=== PATIENT | female | born 1980 | race Caucasian/White ===

== ENCOUNTER 2021-11-23 01:48 | Emergency (ER) | payer MEDICAID, SELFPAY ==
--- NOTE | 2021-11-23 01:49 | ECG_ITS ---
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 Measurements Intervals [place] Rate: 100 P: 62 MO: 120 QRS: 66 QRSD: 83 T: 74 QT: 357 QTc: 460 Interpretive Statements SINUS TACHYCARDIA LOW QRS VOLTAGE IN PRECORDIAL LEADS [QRS DEFLECTION < 1.0 mV IN CHEST LEADS] ABNORMAL RHYTHM ECG Diffuse nonspecific ST-T changes No previous ECG available for comparison Electronically Signed On 11-23-2021 20:41:43 CDT by Alexx Obregon M.D. [email or web address].[employer] (EPS)/store/NU/[id number] kvng
[2021-11-23 01:54] VITALS: BP 110/64; PULSE 96; RESP 22; TEMP 36.6; O2SAT 99; BMI 23.5
[2021-11-23 02:11] VITALS: BP 105/78; PULSE 89; RESP 25; O2SAT 100
--- NOTE | 2021-11-23 02:24 | XRR_ITS ---
PROCEDURE INFORMATION: Exam: XR Abdomen Exam date and time: 11/23/2021 2:28 AM Age: 41 years old Clinical indication: Other: Diarrhea TECHNIQUE: Imaging protocol: Radiologic exam of the abdomen. Views: Frontal supine view of the abdomen. 1 View. COMPARISON: No relevant prior studies available. FINDINGS: Gastrointestinal tract: There is a nonspecific but nonobstructive bowel gas pattern. Bones/joints: Unremarkable. XR/XR KUB portable [id number] IMPRESSION: There is a nonspecific but nonobstructive bowel gas pattern.
--- NOTE | 2021-11-23 02:24 | XRR_ITS ---
PROCEDURE INFORMATION: Exam: XR Chest Exam date and time: 11/23/2021 2:28 AM Age: 41 years old Clinical indication: Shortness of breath; Chest pressure; Patient HX: C/O chest pain with SOB. ; Additional info: Cp TECHNIQUE: Imaging protocol: Radiologic exam of the chest. Views: 1 view. COMPARISON: No relevant prior studies available. FINDINGS: Tubes, catheters and devices: Amplatzer device is in place. Lungs: Unremarkable. No consolidation. Pleural spaces: Unremarkable. No pleural effusion. No pneumothorax. Heart/Mediastinum: Unremarkable. No cardiomegaly. Bones/joints: Unremarkable. XR/XR chest 1V portable [id number] IMPRESSION: No acute disease.
[2021-11-23 02:29] LABS: Basophils % 0.3 %; Eosinophils % 0.2 %; Hematocrit 43.9 % (37.0-47.0); Hemoglobin 14.6 g/dL (11.5-15.3); Lymphocytes # 1.2 10^3/uL (0.8-4.8); Lymphocytes % 19.6 %; Mean Corpuscular HGB Conc 33.3 g/dL (30.0-36.0); Mean Corpuscular Hemoglobin 29.4 pg (28.0-34.0); Mean Corpuscular Volume 88.3 fl (81-99); Mean Platelet Volume 9.8 fL (7.4-10.4); Monocytes # 0.1 10^3/uL (0.2-0.9); Monocytes % 2.1 %; Neutrophils # 4.83 10^3/uL (1.8-7.7); Neutrophils % 77.6 %; Nucleated Red Blood Cells % 0 %; Platelet Count 259 10^3/cmm (130-400); Red Blood Count 4.97 10^6/uL (4.1-5.3); Red Cell Distribution Width 12.4 % (12.1-15.1); White Blood Count 6.2 10^3/uL (4.0-10.0)
[2021-11-23] MEDS: ondansetron 2 mg/ML SDV 2 mL 4 MG IVP (02:36)
[2021-11-23] MEDS: sodium chloride 0.9% 1,000 ML 999 ML IV (02:36)
[2021-11-23 02:48] LABS: Alanine Aminotransferase 45 U/L (0-33); Albumin Level 4.1 g/dL (3.5-5.2); Alkaline Phosphatase 48 U/L (35-105); Anion Gap 20.5 (5-19); Aspartate Amino Transferase 44 U/L (0-32); Blood Urea Nitrogen 10 mg/dL (6-20); C Reactive Protein 7.1 mg/L (0.0-4.9); Calcium 8.4 mg/dL (8.5-10.5); Carbon Dioxide 17 mmol/L (22-29); Chloride 98 mmol/L (98-107); Globulin 2.5 g/dL (1.3-4.6); Glomerular Filtration Rate 79.4 mL/min (90-130); Glucose 158 mg/dL (65-115); Lipase 19 U/L (13-60); Osmolality Calculated 276 mOsm/kg (285-295); Potassium 3.5 mmol/L (3.5-5.1); Sodium 132 mmol/L (136-145); Total Bilirubin 0.4 mg/dL (0.15-1.2); Total Protein 6.6 g/dL (6.6-8.7)
[2021-11-23 02:49] LABS: Troponin(5th) Baseline 6 ng/L (0-10)
--- NOTE | 2021-11-23 02:58 | W.ED.DIZZY ---
HPI - Dizziness General: Chief Complaint: Dizziness Stated Complaint: Chest Pain Time Seen by Provider: 11/23/21 02:13 History of Present Illness: HPI Narrative: 41-year-old female presents with generalized malaise, dizziness, diarrhea, abdominal pain. Patient reports that symptoms been going on throughout the day. That she was concerned because she has a history of a heart attack and has had to have stents placed. patient complains of some left arm discomfort but no real chest pain. Associated symptoms: Reports chills, malaise, nausea and vomiting; Denies chest pain, headache(s) or palpitations Review of Systems Const: Reports: chills, body aches, fatigue and malaise Eyes: Denies: change in vision or blurry vision ENMT: Reports: throat pain; Denies: mouth pain Card: Reports: lightheadedness; Denies: chest pain or palpitations Resp: Denies: dyspnea or productive cough GI: Reports: abdominal pain, nausea, vomiting and diarrhea : Denies: flank pain or dysuria Musc: Denies: neck pain or back pain Skin/Breast: Denies: rash or pruritus Neuro: Reports: dizziness; Denies: headache(s) Physical Exam Const: COMMON NORMALS: no acute distress and patient oriented x3 HENMT: COMMON NORMALS: hearing grossly normal bilaterally and moist oral mucous membranes Eye: COMMON NORMALS: Equal, round and reactive pupils present and EOMs intact bilaterally PUPIL: Yes Equal, round and reactive pupils present Resp: COMMON NORMALS: normal respiratory effort, No use of accessory muscles and clear to auscultation bilaterally AUSCULTATION: clear to auscultation bilaterally Cardio: COMMON NORMALS: regular rate and regular rhythm RATE: regular rate RHYTHM: regular rhythm Extremity: COMMON NORMALS: normal to inspection, full ROM and capillary refill normal Neuro: COMMON NORMALS: patient oriented x3 Psych: COMMON NORMALS: mental status grossly normal, Normal thought process present and speech normal SPEECH: Yes normal speech THOUGHT PROCESS: Normal thought process present Skin: COMMON NORMALS: no rashes or lesions noted, no wounds and turgor normal GENERAL SKIN EXAM: no rashes or lesions noted and turgor normal Course Vital Signs: Vital signs: Vital Signs Temperature 97.8 F 11/23/21 01:54 Pulse Rate 74 11/23/21 04:00 Respiratory Rate 22 H 11/23/21 04:00 Blood Pressure 105/57 11/23/21 04:00 Pulse Oximetry 98 11/23/21 04:00 Oxygen Delivery Me thod 11/23/21 02:11 MDM - Dizziness Medical Decision Making Patient's symptoms have improved with treatment. Patient's symptoms are much more consistent with a viral syndrome noncardiac. She has 2 negative troponins 2 negative EKGs. I will provide her prescription for Zofran. I did recommend she calls her farm equipment engine mechanic to ensure they do not want to see on outpatient basis. Patient stable and discharged home Lab Data : 11/23/21 02:00 11/23/21 02:00 Radiology Impressions Chest X-Ray 11/23/21:24 IMPRESSION: No acute disease. KUB X-Ray 11/23/21:24 IMPRESSION: There is a nonspecific but nonobstructive bowel gas pattern. Laboratory Results WBC 6.2 10^3/uL (4.0-10.0) 11/23/21 02:00 RBC 4.97 10^6/uL (4.1-5.3) 11/23/21 02:00 Hgb 14.6 g/dL (11.5-15.3) 11/23/21 02:00 Hct 43.9 % (37.0-47.0) 11/23/21 02:00 MCV 88.3 fl (81-99) 11/23/21 02:00 MCH 29.4 pg (28.0-34.0) 11/23/21 02:00 MCHC 33.3 g/dL (30.0-36.0) 11/23/21 02:00 RDW 12.4 % (12.1-15.1) 11/23/21 02:00 Plt Count 259 10^3/cmm (130-400) 11/23/21 02:00 MPV 9.8 fL (7.4-10.4) 11/23/21 02:00 Neut % (Auto) 77.6 % 11/23/21 02:00 Lymph % (Auto) 19.6 % 11/23/21 02:00 [place] % (Auto) 2.1 % 11/23/21 02:00 Eos % (Auto) 0.2 % 11/23/21 02:00 Baso % (Auto) 0.3 % 11/23/21 02:00 Neut # (Auto) 4.83 10^3/uL (1.8-7.7) 11/23/21 02:00 Lymph # (Auto) 1.2 10^3/uL (0.8-4.8) 11/23/21 02:00 [place] # (Auto) 0.1 10^3/uL (0.2-0.9) L 11/23/21 02:00 Eos # (Auto) 0.0 10^3/uL (0.0-0.8) 11/23/21 02:00 Baso # (Auto) 0.0 10^3/uL (0.0-0.1) 11/23/21 02:00 Nucleated RBC % (auto) 0 % 11/23/21 02:00 Nucleated RBCs # 0.0 /100WBC 11/23/21 02:00 Sodium 132 mmol/L (136-145) L 11/23/21 02:00 Potassium 3.5 mmol/L (3.5-5.1) 11/23/21 02:00 Chloride 98 mmol/L (98-107) 11/23/21 02:00 Carbon Dioxide 17 mmol/L (22-29) L 11/23/21 02:00 Anion Gap 20.5 (5-19) H 11/23/21 02:00 BUN 10 mg/dL (6-20) 11/23/21 02:00 Creatinine 0.8 mg/dL (0.5-0.9) 11/23/21 02:00 GFR Calculation 79.4 mL/min (90-130) L 11/23/21 02:00 Glucose 158 mg/dL (65-115) H 11/23/21 02:00 Calculated Osmolality 276 mOsm/kg (285-295) L 11/23/21 02:00 Calcium 8.4 mg/dL (8.5-10.5) L 11/23/21 02:00 Total Bilirubin 0.4 mg/dL (0.15-1.2) 11/23/21 02:00 AST 44 U/L (0-32) H 11/23/21 02:00 ALT 45 U/L (0-33) H 11/23/21 02:00 Alkaline Phosphatase 48 U/L (35-105) 11/23/21 02:00 Troponin T Baseline 6 ng/L (0-10) 11/23/21 02:00 Troponin T 120 Minute 6.00 ng/L (0-10) 11/23/21 03:52 C-Reactive Protein 7.1 mg/L (0.0-4.9) H 11/23/21 02:00 Total Protein 6.6 g/dL (6.6-8.7) 11/23/21 02:00 Albumin 4.1 g/dL (3.5-5.2) 11/23/21 02:00 Globulin 2.5 g/dL (1.3-4.6) 11/23/21 02:00 Lipase 19 U/L (13-60) 11/23/21 02:00 SARS-CoV-2 Ag (Rapid) Negative (Negative) 11/23/21 02:34 EKG Data EKG 1: I personally reviewed and interpreted this EKG as follows: EKG interpretation date: 11/23/21 EKG interpretation time: 01:53 Interpretation: Heart rate 103, sinus tach, IL 132, QRS 82, no acute ST elevation or depression. Negative for any acute coronary syndrome EKG 2: I personally reviewed and interpreted this EKG as follows: EKG interpretation date: 11/23/21 EKG interpretation time: 03:52 Interpretation: Heart rate 73, sinus rhythm, occasional PVC. IL 164, QRS 84, negative for any acute ST elevation or T wave changes. Similar to previous EKG Discharge Plan Discharge Patient Disposition: Home Clinical Impression: Viral syndrome Condition: Stable Prescriptions: New ondansetron 4 mg tablet,disintegrating 4 mg PO Q6H PRN (Reason: nausea and vomiting) Qty: 20 0RF Discharge Orders: Discharge ED (Routine); Ordered 11/23/21 Ordered By: Adebayo Woodson Discharge Diet: Advance as tolerated Discharge Activity: Increase activity as tolerated Patient Instructions: Opioid Safety, Pain Management, Viral Syndrome - Adult Activity Restrictions/Additional Instructions: Drink plenty of fluids Please call your farm equipment engine mechanic in the morning to make them aware of your visit to ensure they do not want to see on outpatient basis for further evaluation Coding Level of Care Code ED Jewel Hole Driller for Chg Fwd Exam Comprehensive
[2021-11-23 03:00] VITALS: BP 112/58; PULSE 82; RESP 20; O2SAT 100
[2021-11-23 03:13] LABS: SARS Covid-2 Antigen Negative (Negative)
--- NOTE | 2021-11-23 03:49 | ECG_ITS ---
[facility] Test Date: 2021-11-23 Pat Name: Misa Schumacher Department: Room: Gender: Female Clarifier: : 1980 Requested By: Adebayo Woodson Order Number: [id number] Kg MD: Alexx Obregon M.D. Measurements Intervals [place] Rate: 73 P: 68 MN: 164 QRS: 69 QRSD: 84 T: 25 QT: 380 QTc: 421 Interpretive Statements SINUS RHYTHM WITH OCCASIONAL VENTRICULAR PREMATURE COMPLEXES LOW QRS VOLTAGE IN PRECORDIAL LEADS [QRS DEFLECTION < 1.0 mV IN CHEST LEADS] No previous ECG available for comparison Nonspecific T wave changes Electronically Signed On 11-23-2021 20:48:33 CDT by Alexx Obregon M.D. [email or web address].[facility] Networkslackey memorial hospitalEliassen Groupchildren[facility].[address]/store/OM/[id number]
[2021-11-23 04:00] VITALS: BP 105/57; PULSE 74; RESP 22; O2SAT 98
[2021-11-23 05:03] VITALS: BP 106/70; PULSE 77; RESP 14; O2SAT 98
[2021-11-23 06:25] LABS: Troponin 5 2HR Delta 0 ABS# (0-10)
== END 2021-11-23 05:06 | disposition home or self-care (01) ==
PROVIDERS: Emergency Provider Student in an Organized Health Care Education/Training Program
DX: B34.9 Viral infection, unspecified (principal); Z20.822 Contact with and (suspected) exposure to COVID-19
CPT/HCPCS: 71045; 74018; 80053; 83690; 84484; 85025; 86140; 87426; 93005; J2405; J7030

== ENCOUNTER 2021-12-28 01:00 | Outpatient (CLI) | payer MEDICAID, SELFPAY | END 2021-12-28 23:00 | disposition home or self-care (01) | LOC: RAD 01-08 23:06 | PROVIDERS: PCP Family Medicine; Visit Provider Internal Medicine Cardiovascular Disease | DX: Z13.6 Encounter for screening for cardiovascular disorders (principal); R79.89 Other specified abnormal findings of blood chemistry | CPT/HCPCS: 80053; 80061; 85025; 86705; 86706; 86709; 86803; 87340 ==

== ENCOUNTER → 2022-02-15 09:42 | Outpatient (BNVA) | payer MEDICAID, SELFPAY | PROVIDERS: PCP Family Medicine; Visit Provider Family Medicine | DX: Z30.42 Encounter for surveillance of injectable contraceptive (principal); Z12.4 Encounter for screening for malignant neoplasm of cervix | CPT/HCPCS: 88175 ==

== ENCOUNTER 2022-02-26 13:39 | Outpatient (CLI) | payer MEDICAID, SELFPAY ==
--- NOTE | 2022-02-26 13:45 | USCV_ITS ---
Misa Schumacher Age: 41 Gender: F : 1980 Exam Date: 02/26/2022 13:56 Ordering Phys: Anna Patel MD ([email or web address]) Technologist: Cecille Dowell [place] [facility] [place]: Eval LV function, history PFO repair BP: 121 / 73 HR: 63 Rhythm: Sinus Technical Quality: Good MEASUREMENTS (Male / Female) Normal Values 2D ECHO LV Diastolic Diameter PLAX 3.3 cm 4.2 - 5.9 / 3.9 - 5.3 cm LV Systolic Diameter PLAX 2.6 cm IVS Diastolic Thickness 0.8 cm 0.6 - 1.0 / 0.6 - 0.9 cm IVS Systolic Thickness 1.1 cm LVPW Diastolic Thickness 1.3 cm 0.6 - 1.0 / 0.6 - 0.9 cm LVPW Systolic Thickness 1.4 cm LVOT Diameter 2.1 cm LV Ejection Fraction 2D Teich 45.8 % LV Ejection Fraction MOD 2C 66.2 % LV Ejection Fraction 2C AL 65.0 % LA Diameter 2.1 cm LA Width 2.6 cm LA Height 5.2 cm RA Width 3.5 cm RA Height 4.0 cm Aorta at Sinotubular Diameter 3.1 cm IVC Diameter 1.8 cm M-MODE MV E Point Septal Separation 0.9 cm DOPPLER AV Peak Velocity 89.0 cm/s LVOT Peak Velocity 74.0 cm/s AV Area Cont Eq vti 2.9 cm squared AV Area Cont Eq pk 2.8 cm squared MV Peak Velocity 75.0 cm/s MV Area PHT 4.1 cm squared Mitral E to A Ratio 1.8 MV E' Velocity 80.0 cm/s TR Peak Velocity 61.7 cm/s TR Peak Gradient 1.5 mmHg Right Atrial Pressure 3.0 mmHg Pulmonary Artery Systolic Pressu 4.5 mmHg PV Peak Velocity 86.0 cm/s RV Acceleration Time 0.1 s RV Ejection Time 0.3 s RV AcT/ET 0.3 FINDINGS Left Ventricle Normal left ventricular size, systolic function and wall thickness, with no regional wall motion abnormalities. Left ventricular ejection fraction is estimated at 55-60 %. Abnormal septal motion. Right Ventricle Normal right ventricular size and systolic function. RVSP could not be calculated due to incomplete tricuspid regurgitation velocity profile. Right Atrium Normal right atrial size. S/p PFO repair. No evidence of ASD/PFO. Left Atrium Normal left atrial size. Mitral Valve Structurally normal mitral valve. No mitral valve stenosis. Trace mitral valve regurgitation. Aortic Valve Aortic valve not well visualized. No aortic valve stenosis. No aortic valve regurgitation. Tricuspid Valve Structurally normal tricuspid valve. No tricuspid valve stenosis. Trace tricuspid valve regurgitation. Pulmonic Valve Structurally normal pulmonic valve. No pulmonary valve stenosis. No pulmonary valve regurgitation. Pericardium No pericardial effusion. Aorta Normal-sized aortic root. IVC Normal IVC dimension with >50% respiratory change of the inferior vena cava. CONCLUSIONS 1. Normal left ventricular size, systolic function and wall thickness, with no regional wall motion abnormalities. Left ventricular ejection fraction is estimated at 55-60 %. Abnormal septal motion. 2. Normal right ventricular size and systolic function. 3.Trace mitral and tricuspid valve regurgitation. 4. S/p PFO repair. No evidence of ASD/PFO. 5. No prior similar studies to compare. Anna Patel MD (Electronically Signed) Final Date: 27 February 2022 13:02 S
== END 2022-02-26 13:40 | disposition home or self-care (01) ==
LOC: RAD 13:41
PROVIDERS: PCP Family Medicine; Visit Provider Internal Medicine Cardiovascular Disease
DX: R06.02 Shortness of breath (principal); I25.10 Atherosclerotic heart disease of native coronary artery without angina pectoris; I08.2 Rheumatic disorders of both aortic and tricuspid valves
CPT/HCPCS: 93306

== ENCOUNTER 2022-04-05 06:04 | Outpatient (CLI) | payer MEDICAID, SELFPAY ==
--- NOTE | 2022-04-05 06:29 | NMCV_ITS ---
NM yuli perf SPECT r/s* [id number] Misa Schumacher Age: 41 Gender: F : 1980 Exam Date: 04/05/2022 07:47 Ordering Phys: Anna Patel MD ([email or web address]) Technologist: BRENDA Enamorado Exam Location: [facility] Indications: CHEST PAIN STRESS TEST Please see separate stress test report in [facility] for full findings IMAGE PROTOCOL Rest/Stress 1 Exercise Day Radiopharmaceutical Dose (mCi) Administration Site Administered by Rest: Tc-99m 10.9 IV BRENDA Hopson Sestamibi Stress:Tc-99m 32.2 IV BRENDA Hopson Sestamibi Rest: 05-Apr-2022 60 Discovery 630 Stress: 05-Apr-2022 30 Discovery 630 Radiopharmaceutical was injected at 91 % maximum heart rate. Images obtained in supine and prone position. SPECT RESULTS Technical Quality: Excellent Raw Data Analysis: Normal Image Corrections: No attenuation or motion correction applied Summed Stress Score: 11 Summed Rest Score: 11 Summed Difference Score: 0 PERFUSION FINDINGS Medium sized perfusion abnormality of moderate severity of basal to mid inferolateral, mid inferior, apical inferior and apical lateral high with mild reversibility in mid inferolateral and apical lateral high. FUNCTIONAL RESULTS (calculated via Gated SPECT) Stress Image LV EF (%): 50 Stress EDV (mL):111 TID: 0.86 Stress ESV (mL):55 FUNCTIONAL FINDINGS: The left ventricle is normal in size. Transient Ischemia Dilatation of 0.86. The left ventricular ejection fraction is mildly reduced with a value of 50%. There is mildly decreased wall thickening. IMPRESSIONS 1. Medium sized perfusion abnormality of basal to mid inferolateral, mid inferior, apical inferior and apical lateral high with mild reversibility in mid inferolateral and apical lateral high. 2. This may represent old myocardial infarction in right coronary artery/ circumflex artery territory with mild geronimo-infarct ischemia. 3. The left ventricular ejection fraction is mildly reduced with a value of 50%. 4. There is mildly decreased wall thickening. 5. EKG portion of the study will be reported separately. Anna Patel MD (Electronically Signed) Final Date: 06 April 2022 18:15 S
--- NOTE | 2022-04-05 06:29 | ECG_ITS ---
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 Interpretive Statements NAME OF STUDY: EXERCISE SESTAMIBI STRESS TEST INDICATION: Chest Pain Baseline blood pressure of 105/82 mm Hg, heart rate 86 beats per minute and oxygen saturation of 100%. EKG showed sinus rhythm, normal axis. Possible old anteroseptal infarct. Non specific T wave inversion in lead II, V5-V6. ??? The patient exercised for 9 minutes and 55 seconds on a [standard Mike protocol]. Patient attained a maximum heart rate of 158 beats per minute( 103 % of the maximum predicted heart rate) with a blood pressure at the peak exercise of 144/71 mm Hg and oxygen saturation of 94%. The EKG at the peak exercise revealed sinus tachycardia with no significant ST-T wave changes. Patient did not have any chest pain or any significant arrhythmis with the exercise.The study was terminated due to maximal effort. During the recovery phase, there were no new changes. ??? Blood pressure at the end of the recovery phase was 137/66 mm Hg with a heart rate of 80 beats per minute and oxygen saturation of 96%. ??? CONCLUSION: 1. Normal EKG response to treadmill exercise. 2. No exercise-induced chest pain or cardiac arrhythmia. 3. Excellent exercise tolerance, attained a maximum of 13.5 METs. 4. Baseline normal blood pressure with normal response to exercise. 5. Perfusion scan will be documented separately. Electronically Signed On 04-16-2022 22:56:13 RADIOTELEGRAPHER by Anna Patel M.D. [email or web address]/[id number]
[2022-04-05 06:49] VITALS: BMI 23.6
[2022-04-05 09:03] VITALS: BP 135/68; PULSE 86
== END 2022-04-05 06:05 | disposition home or self-care (01) ==
LOC: CDL 06:06
PROVIDERS: PCP Family Medicine; Visit Provider Internal Medicine Cardiovascular Disease
DX: R07.9 Chest pain, unspecified (principal); I25.9 Chronic ischemic heart disease, unspecified
CPT/HCPCS: 36415; 78452; 93017; 96374; A9500

== ENCOUNTER 2023-02-28 09:17 | Outpatient (CLI) | payer OTHER, MEDICAID, SELFPAY ==
--- NOTE | 2023-02-28 09:42 | MM_ITS ---
WS: [id number] BILATERAL 3D TOMOSYNTHESIS DIGITAL SCREENING MAMMOGRAPHY WITH CAD CLINICAL INFORMATION: screening HISTORY: Screening mammogram. No current complaints. COMPARISON: Baseline TECHNIQUE: Bilateral CC and MLO views. FINDINGS: Scattered fibroglandular densities bilaterally. No suspicious focal mass, asymmetry, calcifications, or architectural distortion. No evidence of malignancy. IMPRESSION: MM/[place] [id number] BI-RADS: 1-Negative FOLLOW UP: 1 Year Follow-up Recommend return to annual screening mammography.
== END 2023-02-28 09:18 | disposition home or self-care (01) ==
LOC: RAD 09:18
PROVIDERS: PCP Family Medicine; Visit Provider Family Medicine
DX: Z12.31 Encounter for screening mammogram for malignant neoplasm of breast (principal)
CPT/HCPCS: 77063; 77067

== ENCOUNTER 2024-03-25 19:42 | Emergency (ER) | payer OTHER, SELFPAY ==
--- NOTE | 2024-03-25 19:54 | XRR_ITS ---
PROCEDURE INFORMATION: Exam: XR Chest Exam date and time: 03/25/2024 8:33 PM Age: 43 years old Clinical indication: Other: Hypertension; Additional info: HTN TECHNIQUE: Imaging protocol: Radiologic exam of the chest. Views: 1 view. COMPARISON: CR XR chest 1V portable [id number] 11/23/2021 2:28 AM FINDINGS: Lungs: Unremarkable. No consolidation. Pleural spaces: Unremarkable. No pleural effusion. No pneumothorax. Heart/Mediastinum: Unremarkable. No cardiomegaly. Bones/joints: Unremarkable. XR/XR chest 1V portable [id number] IMPRESSION: No acute findings.
--- NOTE | 2024-03-25 19:54 | ECG_ITS ---
[facility]: [facility]24-[facility]25 Pat Name: Misa Schumacher Department: Room: Gender: Female Sign Maker: : 1980 Requested By: Carrie Gonzalez Order Number: [id number] MD: Neal Aguillon M.D. Measurements Intervals [place] Rate: 84 P: 62 AK: 169 QRS: 56 QRSD: 77 T: 72 QT: 334 QTc: 396 Interpretive Statements SINUS RHYTHM WITH SINUS ARRHYTHMIA LOW QRS VOLTAGE IN PRECORDIAL LEADS [QRS DEFLECTION < 1.0 mV IN CHEST LEADS] Compared to ECG 11/23/2021 03:49:41 Ventricular premature complex(es) no longer present Electronically Signed On 03-27-2024 09:04:37 MENTAL HEALTH UNIT LEAD PSYCHOLOGIST by Neal Aguillon M.D. [id number]
[2024-03-25 19:56] VITALS: BP 131/85; PULSE 80; RESP 16; TEMP 36.7; O2SAT 100; BMI 24.9
[2024-03-25 21:48] LABS: Basophils % 0.7 %; Eosinophils # 0.1 10^3/uL (0.0-0.8); Eosinophils % 1.4 %; Hematocrit 39.1 % (36-47); Lymphocytes # 2.8 10^3/uL (0.8-4.8); Lymphocytes % 49.5 %; Mean Corpuscular Hemoglobin 29.1 pg (27-33); Mean Corpuscular Volume 91.1 fl (85-98); Monocytes # 0.4 10^3/uL (0.2-0.9); Neutrophils % 41.2 %; Nucleated Red Blood Cells % 0 %; Platelet Count 231 10^3/cmm (157-399); Red Blood Count 4.29 10^6/uL (3.85-5.65); Red Cell Distribution Width 12.3 % (12.1-15.1); White Blood Count 5.58 10^3/uL (3.29-11.43)
[2024-03-25 22:08] LABS: Alanine Aminotransferase 14 U/L (0-33); Albumin Level 4.4 g/dL (3.5-5.2); Alkaline Phosphatase 40 U/L (35-105); Anion Gap 15.8 (5-19); Aspartate Amino Transferase 13 U/L (0-32); Blood Urea Nitrogen 11 mg/dL (6-20); Calcium 9.2 mg/dL (8.5-10.5); Carbon Dioxide 23 mmol/L (22-29); Chloride 103 mmol/L (98-107); Creatinine Clr Calc Pharmacy 76.0092; Globulin 2.2 g/dL (1.3-4.6); Glomerular Filtration Rate 68.7 mL/min (90-130); Glucose 92 mg/dL (65-115); Osmolality Calculated 285 mOsm/kg (285-295); Potassium 3.8 mmol/L (3.5-5.1); Sodium 138 mmol/L (136-145); Total Bilirubin 0.3 mg/dL (0.15-1.2); Total Protein 6.6 g/dL (6.6-8.7)
--- NOTE | 2024-03-26 00:07 | ED_ITS ---
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 She took a nitro which she is supposed to take whenever she has the symptoms and came to the emergency room as she was instructed to do. On my exam she has normal vitals and no longer has any symptoms. Related Data Home Medications Medication Instructions Recorded Confirmed garlic 500 mg capsule 500 mg PO DAILY 12/18/21 10/16/23 fatoumata (Zingiber officinalis) 250 250 mg PO DAILY 12/18/21 10/16/23 mg capsule (fatoumata extract) magnesium oxide 500 mg capsule 500 mg PO DAILY 12/18/21 10/16/23 turmeric root extract 500 mg 500 mg PO DAILY 04/26/22 10/16/23 capsule Previous Rx's Medication Instructions Recorded nitroglycerin 0.4 mg sublingual 0.4 mg sublingual Q5M PRN chest 01/01/23 tablet (Nitrostat) pain #30 tabs medroxyprogesterone 150 mg/mL 150 mg IM Q3M #1 mL 02/18/23 intramuscular syringe (Depo-Provera) ranolazine 500 mg tablet,extended 500 mg PO BID #180 tabs 10/16/23 release,12 hr Allergies Allergy/AdvReac Type Severity Reaction Status Date / Time No Known Allergies Allergy Verified 02/18/23 15:03 Review of Systems 2 Narrative: Constitutional symptoms: Negative except as documented in HPI. Skin symptoms: Negative except as documented in HPI. Eye symptoms: Negative except as documented in HPI. ENMT symptoms: Negative except as documented in HPI. Respiratory symptoms: Negative except as documented in HPI. Cardiovascular symptoms: Negative except as documented in HPI. Gastrointestinal symptoms: Negative except as documented in HPI. Genitourinary symptoms: Negative except as documented in HPI. Musculoskeletal symptoms: Negative except as documented in HPI. Neurologic symptoms: Negative except as documented in HPI. Psychiatric symptoms: Negative except as documented in HPI. Endocrine symptoms: Negative except as documented in HPI. [facility] ED 2 PFSH: Medical History CHF (congestive heart failure), NYHA class II History of NE (myocardial infarction) (~09/03/12) Surgical History S/P patent foramen ovale closure (~2012) S/P coronary angiogram Social History Smoking and tobacco/nicotine status: never used tobacco/nicotine Physical Exam 2 Narrative: EXAM NARRATIVE: General: Alert, no acute distress. Skin: Warm, dry. Head: Normocephalic, atraumatic. Neck: Supple, trachea midline. Eye: Extraocular movements are intact. Ears, nose, mouth and throat: mucosa moist. Cardiovascular: Regular, Normal peripheral perfusion. Respiratory: Lungs are clear to auscultation, respirations are non-labored, breath sounds are equal, Symmetrical chest wall expansion. Gastrointestinal: Soft, Nontender, Non distended Musculoskeletal: Normal ROM, no deformity. Neurological: Alert and oriented, No focal neurological deficit observed. Psychiatric: Cooperative, appropriate mood & affect. Course 2 Vital Signs: Vital signs: Vital Signs Temperature 98.1 F 03/25/24 19:56 Pulse Rate 80 03/25/24 19:56 Respiratory Rate 16 03/25/24 19:56 Blood Pressure 131/85 03/25/24 19:56 Pulse Oximetry 100 03/25/24 19:56 Oxygen Delivery Me thod Room Air 03/25/24 19:56 MDM - Dizziness Medical Decision Making Differential diagnosis for patient with dizziness, hypertension, chest discomfort includes but is not limited to and based on the above HPI, review of systems and physical exam: Pneumonia. unstable angina. angina. Acute coronary syndrome / NE. Pulmonary embolism. Costochondritis / musculoskeletal. Pleurisy. Pericarditis. Esophageal spasm. Pancreatis. Cholecystitis. Orders placed to evaluate differential diagnosis based on the above differential, HPI and physical exam EKG: Time 1957. Rate 84. Normal sinus rhythm, No ST-T changes, no ectopy, normal AL & QRS intervals, This was reviewed and interpreted by myself the ER physician at 2004 Chest x-ray: No acute process. No infiltrate. No pneumothorax. This was reviewed and interpreted by myself the emergency room physician. I also reviewed the radiology report. Lab Review: Laboratory results were reviewed and interpreted by myself the emergency room physician. No leukocytosis. No anemia. No renal failure. Cardiac markers negative I reviewed the patient's medical record. Reexamination: Patient remained stable. No increased work of breathing. No altered mental status. No focal motor deficits. Assessment and plan: Chest pain - Discharged home - Discussed plan with patient. Answered any questions. - Evaluation and treatment of this problem were appropriate in the emergency setting. Lab Data 03/25/24 21:36 03/25/24 21:36 Radiology Impressions Chest X-Ray 03/25/24 19:54 IMPRESSION: No acute findings. Laboratory Results WBC 5.58 10^3/uL (3.29-11.43) 03/25/24 21:36 RBC 4.29 10^6/uL (3.85-5.65) 03/25/24 21:36 Hgb 12.50 g/dL (11.27-16.99) 03/25/24 21: Hct 39.1 % (36-47) 03/25/24 21:36 MCV 91.1 fl (85-98) 03/25/24 21: MCH 29.1 pg (27-33) 03/25/24 21: MCHC 32.0 g/dL (30-55) 03/25/24 21:36 RDW 12.3 % (12.1-15.1) 03/25/24 21:36 Plt Count 231 10^3/cmm (157-399) 03/25/24 21:36 MPV 10.0 fL (7.4-10.4) 03/25/24 21:36 Neut % (Auto) 41.2 % 03/25/24 21: Lymph % (Auto) 49.5 % 03/25/24 21: Story % (Auto) 7.0 % 03/25/24 21:36 Eos % (Auto) 1.4 % 03/25/24 21:36 Baso % (Auto) 0.7 % 03/25/24 21:36 Neut # (Auto) 2.30 10^3/uL (1.8-7.7) 03/25/24 21:36 Lymph # (Auto) 2.8 10^3/uL (0.8-4.8) 03/25/24 21:36 Story # (Auto) 0.4 10^3/uL (0.2-0.9) 03/25/24 21:36 Eos # (Auto) 0.1 10^3/uL (0.0-0.8) 03/25/24 21:36 Baso # (Auto) 0.0 10^3/uL (0.0-0.1) 03/25/24 21:36 Nucleated RBC % (auto) 0 % 03/25/24 21:36 Nucleated RBCs # 0.0 /100WBC 03/25/24 21:36 Sodium 138 mmol/L (136-145) 03/25/24 21:36 Potassium 3.8 mmol/L (3.5-5.1) 03/25/24 21:36 Chloride 103 mmol/L (98-107) 03/25/24 21:36 Carbon Dioxide 23 mmol/L (22-29) 03/25/24 21:36 Anion Gap 15.8 (5-19) 03/25/24 21:36 BUN 11 mg/dL (6-20) 03/25/24 21:36 Creatinine 0.9 mg/dL (0.5-0.9) 03/25/24 21:36 GFR Calculation 68.7 mL/min (90-130) L 03/25/24 21:36 Glucose 92 mg/dL (65-115) 03/25/24 21:36 Calculated Osmolality 285 mOsm/kg (285-295) 03/25/24 21:36 Calcium 9.2 mg/dL (8.5-10.5) 03/25/24 21:36 Total Bilirubin 0.3 mg/dL (0.15-1.2) 03/25/24 21:36 AST 13 U/L (0-32) 03/25/24 21:36 ALT 14 U/L (0-33) 03/25/24 21:36 Alkaline Phosphatase 40 U/L (35-105) 03/25/24 21:36 Troponin T Baseline < 6 ng/L (0-10) 03/26/24 00:23 Total Protein 6.6 g/dL (6.6-8.7) 03/25/24 21:36 Albumin 4.4 g/dL (3.5-5.2) 03/25/24 21:36 Globulin 2.2 g/dL (1.3-4.6) 03/25/24 21:36 All radiology interpretation(s) finalized by discharge Discharge Plan Discharge Patient Disposition: Home Clinical Impression: Chest pain Condition: Stable Prescriptions: No Action turmeric root extract 500 mg capsule 500 mg PO DAILY ranolazine 500 mg tablet extended release 12 hr 500 mg PO BID Qty: 180 3RF magnesium oxide 500 mg capsule 500 mg PO DAILY garlic 500 mg capsule 500 mg PO DAILY fatoumata extract 250 mg capsule 250 mg PO DAILY nitroglycerin [Nitrostat] 0.4 mg tablet, sublingual 0.4 mg sublingual Q5M PRN (Reason: chest pain) Qty: 30 6RF Rx Instructions: do not exceed 3 doses per episode medroxyprogesterone [Depo-Provera] 150 mg/mL syringe 150 mg IM Q3M Qty: 1 3RF Discharge Orders: Discharge ED (Routine); Ordered 03/26/24 Ordered By: Leigh Sheikh Referrals: Purnima Sherman DO [Primary Care Provider] - Discharge Diet: As Directed Discharge Activity: Increase activity as tolerated Patient Instructions: Opioid Safety, Pain Management Activity Restrictions/Additional Instructions: Please call for an appoint with Dr. Fortune. You should see him within the next few days. Also you should see your primary fairly soon as well. Thank you for choosing [facility] for your healthcare needs today. Please realize this is an emergency room and that we are providing you with a medical screening exam and this may not be complete and all inclusive of all the testing and or work up that you may need to determine your ailment or severity of your illness. You have been screened and evaluated and felt safe for discharge. Health conditions do change or evolve sometimes and as such it is important that you follow up with your Primary Doctor to be re checked, 3-5 days is a general good time frame for follow up. You are always welcome to return to the ED for re assessment if your symptoms are worsening or you have new concerns Coding Level of Care Code ED Water Valve Mechanic for Jillian Patrick
--- NOTE | 2024-03-26 00:42 | ECG_ITS ---
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 Measurements Intervals [place] Rate: 59 P: 44 UT: 170 QRS: 48 QRSD: 84 T: 56 QT: 392 QTc: 391 Interpretive Statements SINUS BRADYCARDIA LOW QRS VOLTAGE IN PRECORDIAL LEADS [QRS DEFLECTION < 1.0 mV IN CHEST LEADS] Compared to ECG 03/25/2024 19:58:38 Sinus rhythm no longer present Sinus arrhythmia no longer present Electronically Signed On 03-27-2024 09:04:06 TELECOMMUNICATIONS CONSULTANT by Neal Aguillon M.D. [email or web address]
[2024-03-26 00:47] LABS: Troponin(5th) Baseline < 6 ng/L (0-10)
[2024-03-26 01:02] VITALS: BP 119/78; PULSE 69; RESP 18; O2SAT 99
== END 2024-03-26 01:02 | disposition home or self-care (01) ==
PROVIDERS: Emergency Medicine; Emergency Provider Emergency Medicine; PCP Family Medicine
DX: R07.9 Chest pain, unspecified (principal); I50.9 Heart failure, unspecified
CPT/HCPCS: 36415; 71045; 80053; 84484; 85025; 93005; 99285

== ENCOUNTER → 2024-04-02 11:03 | Outpatient (BNVA) | payer OTHER, SELFPAY | PROVIDERS: PCP Family Medicine; Referring Provider Family Medicine; Visit Provider Psychiatry & Neurology Neurology | DX: I50.22 Chronic systolic (congestive) heart failure (principal); R56.9 Unspecified convulsions; G45.9 Transient cerebral ischemic attack, unspecified; E55.9 Vitamin D deficiency, unspecified; E53.8 Deficiency of other specified B group vitamins; R55 Syncope and collapse | CPT/HCPCS: 36415; 82306; 82607; 82746; 83090; 85210; 85300; 85303; 85306; 85613; 85730; 86147 ==

== ENCOUNTER 2024-04-16 07:06 | Outpatient (CLI) | payer OTHER, SELFPAY ==
--- NOTE | 2024-04-16 07:15 | MR_ITS ---
WS: [id number] MRI BRAIN WITH AND WITHOUT CONTRAST HISTORY: G45.9 - Transient cerebral ischemic attack, unspecified COMPARISON: None available. TECHNIQUE: Multiplanar imaging performed through the brain with MultiHance 15 ml's IV. Diffusion imaging is normal. There are 2 very small foci of increased T1 and T2 signal in the cortex of the LEFT posterior frontal parietal cortex. No additional signal abnormalities in the cerebellum or cerebrum. No large territory infarct. No susceptibility artifacts or prior lacunar infarcts. Ventricles and extra-axial spaces are normal. Clivus and pituitary gland are normal. Visualized posterior fossa and brainstem are also normal. Postcontrast images are negative for masses or vascular malformations. Dural venous sinuses are normal. Paranasal sinuses: Well aerated with no significant disease. Mastoid air cells: Normal. Calvarium and scalp: Normal. MR/MR head wo/w con [id number] IMPRESSION: 1. Diffusion imaging is normal. No acute infarct. 2. T1 and T2 cortical hyperintensities seen at the LEFT frontoparietal junctio n. Suspect this is an area of cortical laminar necrosis after a very tiny corti madalyn based infarct. This can be reevaluated in 3 months by MRI brain with and wi thout contrast if clinically thought necessary. 3. No enhancing masses. No prior large territory infarct.
--- NOTE | 2024-04-16 08:00 | MR_ITS ---
WS: [id number] MRA ANGIOGRAPHY [place] OF [place] HISTORY: G45.9 - Transient cerebral ischemic attack, unspecified COMPARISON: None available. TECHNIQUE: 3-D MR angiography is performed of the sleetm[place] of V[place]. All images are reviewed including source images. Distal vertebral and basilar arteries are intact with no significant stenosis or plaque. Codominant distal vertebral arteries. Posterior cerebral arteries are normal course and caliber. Posterior communicating arteries are both patent. Intracranial portion of the internal carotid arteries are normal course and caliber. No significant atherosclerosis, stenosis or aneurysm identified. Middle and anterior cerebral arteries are both patent with no significant disease. Slightly hypoplastic RIGHT A1 segment. Anterior communicating artery is also normal. MR/MR angio head wo con [id number] IMPRESSION: 1. No significant atherosclerotic disease, aneurysm or [place] of V[place] stenos is. 2. Mildly hypoplastic RIGHT A1 segment.
--- NOTE | 2024-04-16 08:15 | MR_ITS ---
WS: [id number] MRA CAROTID ARTERIES HISTORY: G45.9 - Transient cerebral ischemic attack, unspecified COMPARISON: None available. TECHNIQUE: MRA is performed with intravenous gadolinium. MIP and source images are reviewed. Right: Normal RIGHT common, internal and external carotid arteries. No plaque or stenosis. Left: LEFT common carotid artery arises from the base of the innominate. Normal common, internal and external carotid arteries. No plaque or stenosis. Subclavian Arteries: Normal. Good enhancement. Vertebral Arteries: Both vertebral arteries are patent. The distal RIGHT vertebral artery is slightly smaller than the LEFT. MR/MR angio neck w con* [id number] IMPRESSION: 1. Normal MRA carotid arteries. 2. Bovine arch.
[2024-04-16] MEDS: gadobenate dimeglumine 20 mL vial IV (08:22)
== END 2024-04-16 07:07 | disposition home or self-care (01) ==
PROVIDERS: PCP Family Medicine; Visit Provider Psychiatry & Neurology Neurology
DX: G45.9 Transient cerebral ischemic attack, unspecified (principal); R93.0 Abnormal findings on diagnostic imaging of skull and head, not elsewhere classified
CPT/HCPCS: 70544; 70548; 70553

== ENCOUNTER → 2024-05-20 07:08 | Outpatient (BNVA) | payer OTHER, SELFPAY | PROVIDERS: PCP Family Medicine; Visit Provider Podiatrist Foot & Ankle Surgery | DX: M79.672 Pain in left foot (principal); M20.22 Hallux rigidus, left foot; M21.612 Bunion of left foot | CPT/HCPCS: 73630 ==

== ENCOUNTER 2024-06-23 06:56 | Outpatient (CLI) | payer OTHER, SELFPAY ==
--- NOTE | 2024-06-23 07:05 | USCV_ITS ---
Madikarolinenimesh Misa Age: 43 Gender: F : 1980 Exam Date: 06/23/2024 07:19 Ordering Phys: Vania Fortune MD ([email or web address]) Technologist: [place] [facility] [place]: cva BP: 115 / 70 HR: Rhythm: Sinus Technical Quality: Adequate MEASUREMENTS (Male / Female) Normal Values 2D ECHO LV Ejection Fraction MOD 4C 61.0 % LV Ejection Fraction MOD 2C 73.6 % LV Ejection Fraction 2C AL 74.6 % FINDINGS Left Ventricle Normal left ventricular size, systolic function and wall thickness, with no regional wall motion abnormalities. Left ventricular ejection fraction is estimated at 60 %. Right Ventricle Right Atrium Left Atrium Mitral Valve Aortic Valve Tricuspid Valve Pulmonic Valve Pericardium Aorta IVC CONCLUSIONS Limited echo Normal left ventricular size, systolic function and wall thickness, with no regional wall motion abnormalities. Left ventricular ejection fraction is estimated at 60 %. There is no pericardial effusion. Vania Fortune MD (Electronically Signed) Final Date: 28 June 2024 19:11 S
== END 2024-06-23 06:57 | disposition home or self-care (01) ==
PROVIDERS: PCP Family Medicine; Visit Provider Internal Medicine Cardiovascular Disease
DX: I63.9 Cerebral infarction, unspecified (principal); R00.2 Palpitations; R07.9 Chest pain, unspecified
CPT/HCPCS: C8924

== ENCOUNTER 2024-07-30 07:58 | Outpatient (CLI) | payer OTHER, SELFPAY ==
[2024-07-30 09:11] LABS: Basophils % 0.4 %; Eosinophils # 0.1 10^3/uL (0.0-0.8); Eosinophils % 1.9 %; Hematocrit 40.2 % (36-47); Lymphocytes # 2.2 10^3/uL (0.8-4.8); Lymphocytes % 41.6 %; Mean Corpuscular HGB Conc 32.6 g/dL (30-55); Mean Corpuscular Hemoglobin 30.4 pg (27-33); Mean Corpuscular Volume 93.3 fl (85-98); Mean Platelet Volume 9.8 fL (7.4-10.4); Monocytes # 0.3 10^3/uL (0.2-0.9); Monocytes % 6.6 %; Neutrophils # 2.55 10^3/uL (1.8-7.7); Neutrophils % 49.1 %; Nucleated Red Blood Cells % 0 %; Platelet Count 271 10^3/cmm (157-399); Red Blood Count 4.31 10^6/uL (3.85-5.65); Red Cell Distribution Width 12.4 % (12.1-15.1); White Blood Count 5.19 10^3/uL (3.29-11.43)
[2024-07-30 09:44] LABS: Alanine Aminotransferase 13 U/L (0-33); Albumin Level 4.4 g/dL (3.5-5.2); Alkaline Phosphatase 37 U/L (35-105); Anion Gap 14.3 (5-19); Aspartate Amino Transferase 13 U/L (0-32); Blood Urea Nitrogen 12 mg/dL (6-20); Calcium 9.1 mg/dL (8.5-10.5); Carbon Dioxide 24 mmol/L (22-29); Chloride 105 mmol/L (98-107); Chol HDL Ratio 3.73 mg/dL (0.0-4.40); Cholesterol 194 mg/dL (0-200); Free T4 Free Thyroxine 1.22 ng/dL (0.82-1.77); Globulin 2.7 g/dL (1.3-4.6); Glomerular Filtration Rate 68.7 mL/min (90-130); Glucose 95 mg/dL (65-115); HDL Cholesterol 52 mg/dL (60-100); LDL Cholesterol Calculated 126 mg/dL (50-129); LDL HDL Ratio 2.42 RATIO (0.00-3.22); Magnesium 2.1 mg/dL (1.7-2.3); Osmolality Calculated 288 mOsm/kg (285-295); Potassium 4.3 mmol/L (3.5-5.1); Sodium 139 mmol/L (136-145); Thyroid Stimulating Hormone 1.39 uIU/mL (0.27-4.20); Total Bilirubin 0.4 mg/dL (0.15-1.2); Total Protein 7.1 g/dL (6.6-8.7); Triglycerides 78 mg/dL (0-150)
== END 2024-07-30 07:59 | disposition home or self-care (01) ==
PROVIDERS: PCP Family Medicine; Visit Provider Psychiatry & Neurology Neurology
DX: G45.9 Transient cerebral ischemic attack, unspecified (principal); R55 Syncope and collapse; Z13.6 Encounter for screening for cardiovascular disorders
CPT/HCPCS: 36415; 80053; 80061; 83735; 84439; 84443; 85025

== ENCOUNTER 2024-08-03 07:02 | Outpatient (CLI) | payer OTHER, SELFPAY ==
--- NOTE | 2024-08-03 07:15 | MR_ITS ---
WS: [id number] MRI BRAIN WITH AND WITHOUT CONTRAST HISTORY: G45.9 - Transient cerebral ischemic attack, unspecified COMPARISON: 04/16/2024, TECHNIQUE: Multiplanar imaging performed through the brain with MultiHance 15 ml's IV. No acute infarcts are seen. Munoz-white matter differentiation is well preserved. Cortical hyperdensity seen on the prior study in the cortex of the LEFT frontoparietal region have resolved. No signal abnormalities. Brain is well preserved. No significant atrophy. No susceptibility artifacts or prior lacunar infarcts. Ventricles and extra-axial spaces are normal. Clivus and pituitary gland are normal. Visualized posterior fossa and brainstem are also normal. Postcontrast images are negative for masses or vascular malformations. Dural venous sinuses are normal. Paranasal sinuses: Well aerated with no significant disease. Mastoid air cells: Normal. Calvarium and scalp: Normal. MR/MR head wo/w con [id number] IMPRESSION: 1. Unremarkable MRI brain with contrast. Previously described T2 hyperintensit ies in the frontal parietal cortex have completely resolved. No residual infarc ts. 2. No hemorrhage. 3. No significant volume loss.
[2024-08-03] MEDS: gadobenate dimeglumine 20 mL vial IV (07:51)
== END 2024-08-03 07:03 | disposition home or self-care (01) ==
PROVIDERS: PCP Family Medicine; Visit Provider Psychiatry & Neurology Neurology
DX: G45.9 Transient cerebral ischemic attack, unspecified (principal); R55 Syncope and collapse; R93.89 Abnormal findings on diagnostic imaging of other specified body structures
CPT/HCPCS: 70553

== ENCOUNTER 2025-01-07 11:52 | Outpatient (CLI) | payer OTHER, SELFPAY ==
--- NOTE | 2025-01-07 | ECG_ITS ---
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 Interpretive Statements Lung unchanged pre/post procedure; Intraprocedure shortess of breath;; Symptoms resoled by discharge PROCEDURE: At the baseline, the patient's blood pressure was 115/77 with a heart rate of 87. The baseline electrocardiogram showed normal sinus rhythm with poor R wave progression. Low voltage complexes in the precordial leads. Diffuse nonspecific T wave changes The patient exercised for 9 minutes and 45 seconds on a standard Mike protocol. Patient attained a maximum heart rate of 170 beats per minute(96% of the maximum predicted heart rate) with a blood pressure at the peak exercise of 155/56 mm Hg. The EKG at the peak exercise revealed no significant changes. Patient did not have any chest pain or any significant cardiac arrhythmias with the exercise During the recovery phase, there were no new changes. Blood pressure at the end of the recovery phase was 143/57 mm Hg with a heart rate of 83 per minute. CONCLUSION: 1. No significant EKG changes with the treadmill exercise 2. No exercise-induced chest pain or cardiac arrhythmia 3. Good exercise tolerance, attained a maximum of 13.5 METs Electronically Signed On 01-08-2025 20:17:57 SUPERINTENDENT GREENS by Alexx Obregon M.D. [email or web address]
[2025-01-07 12:00] VITALS: BMI 24.9
[2025-01-07 12:26] VITALS: BP 143/57; PULSE 84
== END 2025-01-07 11:53 | disposition home or self-care (01) ==
LOC: CDL 11:54
PROVIDERS: PCP Family Medicine; Visit Provider Internal Medicine Cardiovascular Disease
DX: R07.9 Chest pain, unspecified (principal)
CPT/HCPCS: 93017